=== PATIENT | male | born 1985 | race Caucasian/White ===

== ENCOUNTER 2016-11-10 11:41 | Emergency (ER) | payer BC, OTHER ==
[2016-11-10] MEDS ORDERED: Lidocaine 1% 10 ML MDV INJECT SCH (12:00)
--- NOTE | 2016-11-10 12:05 | EDM.PDOC ---
ED HPI GENERAL MEDICAL PROBLEM - General Chief Complaint: Upper Extremity Injury/Pain Stated Complaint: FISH HOOK IN LEFT MIDDLE FINGER Time Seen by Provider: 11/10/16 11:45 Source of Information: Reports: Patient History Limitations: Reports: No Limitations - History of Present Illness INITIAL COMMENTS - FREE TEXT/NARRATIVE: 30 YO WM presents to ER with fish hook in left index finger. Pt reports he was trying to remove fish hook from fishes mouth when the fish moved causing fish hook to lodge in left index finger. Pt denies any other injury Onset: Today Onset Date: 11/10/16 Onset Time: 11:01 Location: Reports: Upper Extremity, Left Quality: Reports: Ache Severity: Mild Improves with: Reports: None Worsens with: Reports: None Associated Symptoms: Reports: No Other Symptoms - Related Data Home Meds: Home Meds Amoxicillin/Clavulanate K [Augmentin 875 MG/125 MG] 1 tab PO Q12HR #20 tablet [Rx] Review of Systems - Review of Systems Review Of Systems: See Below Constitutional: Reports: No Symptoms Eyes: Reports: No Symptoms Ears: Reports: No Symptoms Nose: Reports: No Symptoms Mouth/Throat: Reports: No Symptoms Respiratory: Reports: No Symptoms Cardiovascular: Reports: No Symptoms GI/Abdominal: Reports: No Symptoms Genitourinary: Reports: No Symptoms Musculoskeletal: Reports: No Symptoms Skin: Reports: Wound (fish hook in left index finger) Neurological: Reports: No Symptoms Psychiatric: Reports: No Symptoms Trauma Exam - Physical Exam Exam: See Below Exam Limited By: No Limitations General Appearance: Reports: Alert, WD/WN, No Apparent Distress Head: Reports: Atraumatic, Normocephalic Ears: Reports: Normal External Exam, Normal Canal, Hearing Grossly Normal, Normal TMs Nose: Reports: Normal Inspection, Normal Mucousa, No Blood Throat/Mouth: Reports: Normal Inspection, Normal Lips, Normal Teeth, Normal Gums , Normal Oropharynx, Normal Voice, No Airway Compromise Neck: Reports: Non-Tender, Full Range of Motion, Normal Alignment, Normal Inspection Respiratory Exam: Reports: No Respiratory Distress, Lungs Clear, Normal Breath Sounds Cardiovascular: Reports: Normal Peripheral Pulses GI/Abdominal: Reports: Normal Bowel Sounds, Soft, Non-Tender, No Organomegaly, No Distention, No Abnormal Bruit, No Mass Back: Reports: Full Range of Motion, Normal Inspection, Non-Tender Neurologic: Reports: firing pin gauger II-XII nml As Tested, No Motor/Sensory Deficits, Alert , Normal Mood/Affect, Oriented x 3 Skin: Reports: Normal Color, Warm/Dry ED TRAUMA EXTREMITY PROCEDURES - Foreign Body Removal Indication:: fish hook removal Consent obtained: patient Performing Doctor:: Narciso Butts Foreign Body Other Location Comment:: fish hook to left index finger Anesthesia Type: Local Complications:: No Comments:: removed without difficuty Departure - Departure Time of Disposition: 12:18 Disposition: Home, Self-Care 01 Condition: good Clinical Impression: Fish hook injury of finger Qualifiers: Encounter type: initial encounter Laterality: left Qualified Code(s): S69.92XA - Unspecified injury of left wrist, hand and finger(s), initial encounter - Discharge Information Prescriptions: Amoxicillin/Clavulanate K [Augmentin 875 MG/125 MG] 1 tab PO Q12HR #20 tablet Instructions: Sliver Removal, Care After Referrals: PCP,Not In Area [Primary Care Provider] - Katie López MD [Physician] - - Assessment/Plan Assessment:: 1. fish hook to left index finger Plan: 1. augmentin 875mg PO BID x 10 days 2. tetanus 3. follow up at clinic for further evaluation and treatment
[2016-11-10] MEDS ORDERED: Diphtheria,Pertussis(Acell),Tetanus Vaccine 0.5 ML SDV IM ONE (12:27)
[2016-11-10 13:14] VITALS: BP 135/72
[2016-11-10] MEDS ORDERED: Bacitracin/Neomycin/Polymyxin B Oint 28.4 GM Tube TOP SCH (14:00)
== END 2016-11-10 13:10 | disposition home or self-care (01) ==
LOC: KA.ED 11:41
DX: S69.92XA Unspecified injury of left wrist, hand and finger(s), initial encounter (principal); W45.8XXA Other foreign body or object entering through skin, initial encounter; Z23 Encounter for immunization
CPT/HCPCS: 90471; 90715; 99282; A9270-GY